=== PATIENT | female | born 1980 | race Caucasian/White ===

== ENCOUNTER → 2016-12-14 | Outpatient (CLI) | payer OTHER, BC ==
[2016-12-14 13:51] LABS: Basophils % (A) 0 %; CH 29.3; CHCM 33.3; Eosinophils # (A) 0.2 k/uL (0-0.7); Eosinophils % (A) 2 %; HCT 33.9 % (34.0-46.0); HDW 2.89; HGB 11.3 gm/dL (11.4-16.0); Luc # (Auto) 0.22; Luc % (Auto) 2; Lymphocytes # (A) 1.7 k/uL (1.0-4.8); Lymphocytes % (A) 14 %; MCH 29.5 pg (25.0-35.0); MCHC 33.3 g/dL (31.0-37.0); MCV 88.5 fL (80.0-100.0); Mean Platelet Volume 8.4; Monocytes # (A) 0.5 k/uL (0-1.0); Monocytes % (A) 4 %; Neutrophils # (A) 9.5 k/uL (1.3-7.7); Neutrophils % (A) 79 %; RBC 3.83 m/uL (3.80-5.40); RDW 14.1 % (11.5-15.5)
[2016-12-15 08:00] LABS: HIV-1/HIV-2 Ab Screen NONREAC (NON REAC)
== END ==
LOC: LABWHC1 12:12
PROVIDERS: ATTEND Midwife
DX: Z36 Encounter for antenatal screening of mother (principal)
CPT/HCPCS: 36415; 82950; 85025; 86780; 87389

== ENCOUNTER → 2017-01-14 | Outpatient (CLI) | payer BC, OTHER ==
[2017-01-14 08:43] LABS: Basophils % (A) 0 %; CH 29.3; CHCM 33.1; Eosinophils # (A) 0.2 k/uL (0-0.7); Eosinophils % (A) 2 %; HCT 36.5 % (34.0-46.0); HDW 2.71; Luc # (Auto) 0.25; Luc % (Auto) 2; Lymphocytes # (A) 1.8 k/uL (1.0-4.8); Lymphocytes % (A) 17 %; MCH 29.2 pg (25.0-35.0); MCHC 32.8 g/dL (31.0-37.0); MCV 88.9 fL (80.0-100.0); Mean Platelet Volume 9.2; Monocytes # (A) 0.5 k/uL (0-1.0); Monocytes % (A) 5 %; Neutrophils # (A) 7.7 k/uL (1.3-7.7); Neutrophils % (A) 74 %; RBC 4.11 m/uL (3.80-5.40); RDW 14.6 % (11.5-15.5); WBC 10.4 k/uL (3.8-10.6)
[2017-01-14 12:18] LABS: Glucose 3 Hour, Gest 77 mg/dL
[2017-01-18 08:00] LABS: HIV-1/HIV-2 Ab Screen NONREAC (NON REAC)
== END | disposition home or self-care (01) ==
LOC: LABWHC1 07:54
PROVIDERS: ATTEND Obstetrics & Gynecology
DX: O24.419 Gestational diabetes mellitus in pregnancy, unspecified control (principal); Z3A.00 Weeks of gestation of pregnancy not specified
CPT/HCPCS: 36415; 82951; 82952; 85025; 86780; 87389

== ENCOUNTER 2018-05-25 06:15 | Inpatient (IN) | payer BC, OTHER ==
[2018-05-25] MEDS ORDERED: TERBUTALINE 1 MG/ML VIAL SQ PRN (06:54)
[2018-05-25] MEDS ORDERED: LIDOCAINE 1% INJ 10MG/ML (20 ML MDV) SQ PRN (06:54)
[2018-05-25] MEDS ORDERED: CARBOPROST TROMETHAMINE 250 MCG/ML 1 ML AMP IM PRN (06:54)
[2018-05-25] MEDS ORDERED: METHYLERGONOVINE 0.2 MG/ML 1 ML AMP IM PRN (06:54)
[2018-05-25] MEDS ORDERED: OXYTOCIN 10 UNIT/ML 1 ML VIAL IM PRN (06:54)
[2018-05-25] MEDS ORDERED: OXYTOCIN 20 UNITS/1000 ML NS 1,000 ML IV SCH (07:00)
[2018-05-25 07:03] LABS: Anisocytosis Slight; Basophils % (A) 0 %; Eosinophils # (A) 0.2 k/uL (0-0.7); Eosinophils % (A) 2 %; HCT 30.1 % (34.0-46.0); HGB 9.5 gm/dL (11.4-16.0); Hypochromasia Moderate; Lymphocytes # (A) 2.1 k/uL (1.0-4.8); Lymphocytes % (A) 21 %; MCH 25.6 pg (25.0-35.0); MCHC 31.7 g/dL (31.0-37.0); MCV 80.9 fL (80.0-100.0); Mean Platelet Volume 11.5; Monocytes # (A) 0.4 k/uL (0-1.0); Monocytes % (A) 4 %; Neutrophils # (A) 6.8 k/uL (1.3-7.7); Neutrophils % (A) 71 %; Platelet Count 164 k/uL (150-450); RBC 3.73 m/uL (3.80-5.40); RDW 17.3 % (11.5-15.5); WBC 9.6 k/uL (3.8-10.6)
[2018-05-25] MEDS: LACTATED RINGERS 1,000 ML IV SCH ×2 (07:18→10:13)
[2018-05-25 07:31] VITALS: BMI 29.0
[2018-05-25] MEDS ORDERED: ROPIVACAINE 100 MG, fentaNYL (PF) 200 MCG in SODIUM CHLORIDE 0.9% 76 ML EPIDURAL ONE (10:55)
[2018-05-25] MEDS ORDERED: diphenhydrAMINE 25 MG CAP PO PRN (19:55)
[2018-05-25] MEDS ORDERED: ACETAMINOPHEN TAB 325 MG TAB PO PRN (19:55)
[2018-05-25] MEDS ORDERED: HYDROCORTISONE 2.5% RECTAL CREAM 30 GM TUBE RECTAL PRN (19:55)
[2018-05-25] MEDS ORDERED: SIMETHICONE 80 MG CHEWABLE PO PRN (19:55)
[2018-05-25] MEDS ORDERED: HYDROcodone/APAP 5-325MG 1 EACH TAB PO PRN (19:55)
[2018-05-25] MEDS ORDERED: WITCH HAZEL 1 EACH MED..PAD TOPICAL PRN (19:55)
[2018-05-25] MEDS ORDERED: BENZOCAINE/MENTHOL SPRAY 1 GM/SPRAY AEROSOL TOPICAL PRN (19:55)
[2018-05-25] MEDS ORDERED: ZOLPIDEM 5 MG TAB PO PRN (19:55)
[2018-05-25] MEDS ORDERED: LANOLIN CREAM 5 GM TUBE TOPICAL PRN (19:55)
[2018-05-25] MEDS ORDERED: diphenhydrAMINE 50 MG CAP PO PRN (19:55)
--- NOTE | 2018-05-25 20:03 | P.HPOB ---
History of Present Illness H&P Date: 05/25/18 Chief Complaint: Intrauterine at term: Induction of labor Patient is a 37-year-old 9 weeks gestation arise for induction of labor. Her Precis course of incompetent by advanced maternal age and late to care. She also has a history of HSV but had no recent outbreaks. She was started on prophylaxis. All questions were answered for her prior to proceeding with the induction and otherwise her Precis course was generally unremarkable. Pertinent labs included a positive blood type Rh antibody was negative, rubella was immune, hepatitis B surface antigen RPR and HIV were all negative. Category 1 tracing is noted this morning she was dilated to 2 cm artificial rupture membranes was performed and clear fluid was noted. GBS was also noted to be negative. Maternal 21 was also normal. Past Medical History Past Medical History: GERD/Reflux Additional Past Medical History / Comment(s): HERNIATED DISC. MILD DISC DISEASE. IBS. History of Any Multi-Drug Resistant Organisms: None Reported Past Surgical History: Section Additional Past Surgical History / Comment(s): PAIN INJECTIONS. COLONSCOPY. D+ C 2003 Past Anesthesia/Blood Transfusion Reactions: No Reported Reaction Past Psychological History: ADD/ADHD, Anxiety Smoking Status: Current every day smoker Past Alcohol Use History: Rare Past Drug Use History: None Reported - Past Family History Father History Unknown: Yes Additional Family Medical History / Comment(s): patient is adopted Medications and Allergies Home Medications Medication Instructions Recorded Confirmed Type Ranitidine HCl [Zantac] 150 mg PO DIRECTED PRN 10/22/15 05/25/18 History Acyclovir 400 mg PO BID 05/25/18 05/25/18 History Allergies Allergy/AdvReac Type Severity Reaction Status Date / Time azithromycin [From Zithromax] AdvReac Severe Unknown Verified 05/25/18 06:47 doxycycline AdvReac Severe Nausea & Verified 05/25/18 06:47 Vomiting sulfamethoxazole AdvReac Severe Nausea & Verified 05/25/18 06:47 [From Bactrim] Vomiting trimethoprim [From Bactrim] AdvReac Severe Nausea & Verified 05/25/18 06:47 Vomiting Exam Osteopathic Statement: *. No significant issues noted on an osteopathic structural exam other than those noted in the History and Physical/Consult. Vital Signs Temp Pulse Resp BP Pulse Ox 05/25/18 19:57 98.5 F 80 16 135/88 05/25/18 16:47 98.2 F 62 17 140/81 05/25/18 16:17 58 L 16 134/83 05/25/18 15:47 57 L 16 131/80 05/25/18 15:32 66 18 133/79 05/25/18 15:17 66 17 137/76 05/25/18 14:56 64 17 132/72 05/25/18 14:45 98.3 F 75 16 130/69 05/25/18 07:19 73 17 138/73 100 Intake and Output 05/25/18 05/25/18 05/25/18 06:59 14:59 22:59 Other: # Voids 1 Weight 81.647 kg 81.647 kg - OBG Physical Exam Breast: both: normal (no masses) Abdomen: bowel sounds normal, no diffuse tenderness, no bruit present, no guarding noted, no hepatomegaly, no splenomegaly, no mass Vulva: both: normal Vagina: normal moisture, no discharge Cervix: no lesion, no discharge Uterus: normal size, normal contour Adnexa: both: normal Anus/Rectum: normal perianal skin, no rectal mass, no hemorrhoids, heme negative Results Result Diagrams: 05/25/18 06:50 Abnormal Lab Results - Last 24 Hours (Table) 05/25/18 Range/Units 06:50 RBC 3.73 L (3.80-5.40) m/uL Hgb 9.5 L (11.4-16.0) gm/dL Hct 30.1 L (34.0-46.0) % RDW 17.3 H (11.5-15.5) %
--- NOTE | 2018-05-25 20:04 | P.PROBDLV ---
Vaginal Delivery Note - . Vaginal Delivery Note: Patient progressed complete and pushed with spontaneous vaginal delivery of a viable female over an intact perineum. Falling deliver the head anterior posterior shoulders were delivered with gentle downward upper traction followed by the remainder the baby. Baby was delivered from left occiput anterior position. Once baby was delivered mouth nares were bulb suctioned and baby was placed on mother's abdomen where the umbilical cord was allowed to pulsate for 30 seconds prior to clamping and cutting. Once this was completed nursery personnel was present to assume care. Placenta was then delivered intact and Pitocin was added to the IV. scores were 9 and 9 at one and 5 minutes respectively weight was 8 lbs. 5 oz. Both mother and baby are stable following delivery.
[2018-05-25] MEDS: IBUPROFEN 600 MG TAB PO PRN (23:07)
[2018-05-25] MEDS: SENNOSIDES-DOCUSATE SODIUM 1 EACH TAB PO SCH (23:07)
[2018-05-26] MEDS: IBUPROFEN 600 MG TAB PO PRN ×2 (06:17→12:49)
[2018-05-26] MEDS: SENNOSIDES-DOCUSATE SODIUM 1 EACH TAB PO SCH (08:00)
--- NOTE | 2018-05-26 08:43 | P.DS ---
Providers Date of admission: 05/25/18 06:39 Expected date of discharge: 05/26/18 Attending physician: Aldo Wagner Primary care physician: Stated None Hospital Course: Patient is doing very well day 1. She is involuting, voiding, and she is tolerating her diet. She voices no complaints. Vital signs are stable and afebrile. Heart regular, lungs clear, extremities without pain. Abdomen soft uterus is firm and lochia is reported be light. Assessment day 1. Plan discharged home follow up with me in 6 weeks. Prescription for Motrin and a breast pump were provided and all of the questions are answered for her at this time. Patient Condition at Discharge: Good Plan - Discharge Summary New Discharge Prescriptions: New Ibuprofen [Motrin] 600 mg PO Q6HR PRN #30 tab PRN Reason: Pain No Action Ranitidine HCl [Zantac] 150 mg PO DIRECTED PRN PRN Reason: STOMACH PAIN Acyclovir 400 mg PO BID Discharge Medication List Ranitidine HCl [Zantac] 150 mg PO DIRECTED PRN 10/22/15 [History] Acyclovir 400 mg PO BID 05/25/18 [History] Ibuprofen [Motrin] 600 mg PO Q6HR PRN #30 tab 05/26/18 [Rx] Follow up Appointment(s)/Referral(s): Aldo Wagner DO [Doctor of Osteopathic Medicine] - 6 Weeks Activity/Diet/Wound Care/Special Instructions: No heavy lifting, limit stairs and driving, and pelvic rest. If any high temperatures, heavy bleeding, or severe pain call my office Discharge Disposition: HOME SELF-CARE
[2018-05-26 09:03] LABS: Anisocytosis Slight; Basophils % (A) 0 %; Eosinophils # (A) 0.2 k/uL (0-0.7); Eosinophils % (A) 2 %; HCT 27.5 % (34.0-46.0); Hypochromasia Slight; Lymphocytes # (A) 1.9 k/uL (1.0-4.8); Lymphocytes % (A) 18 %; MCH 25.9 pg (25.0-35.0); MCHC 32.8 g/dL (31.0-37.0); MCV 79.1 fL (80.0-100.0); Mean Platelet Volume 12.1; Microcytosis Slight; Monocytes # (A) 0.4 k/uL (0-1.0); Monocytes % (A) 4 %; Neutrophils # (A) 8.2 k/uL (1.3-7.7); Neutrophils % (A) 75 %; Platelet Count 148 k/uL (150-450); RBC 3.48 m/uL (3.80-5.40); RDW 17.8 % (11.5-15.5); WBC 10.9 k/uL (3.8-10.6)
[2018-05-26 10:47] LABS: Large Platelets Present; Toxic Granulation Present
[2018-05-26 11:53] VITALS: BP 126/64; PULSE 98; RESP 18; TEMP 98.3
== END 2018-05-26 16:45 | disposition home or self-care (01) | DRG 807 ==
LOC: 4FBP 06:39
PROVIDERS: ADMIT Obstetrics & Gynecology; ATTEND Obstetrics & Gynecology
PROC: 00HU33Z Insertion of Infusion Device into Spinal Canal, Percutaneous Approach (ICD-10-PCS; principal; 2018-05-25)
PROC: 10907ZC Drainage of Amniotic Fluid, Therapeutic from Products of Conception, Via Natural or Artificial Opening (ICD-10-PCS; principal; 2018-05-25)
PROC: 10E0XZZ Delivery of Products of Conception, External Approach (ICD-10-PCS; principal; 2018-05-25)
PROC: 3E033VJ Introduction of Other Hormone into Peripheral Vein, Percutaneous Approach (ICD-10-PCS; principal; 2018-05-25)
PROC: 3E0R3NZ Introduction of Analgesics, Hypnotics, Sedatives into Spinal Canal, Percutaneous Approach (ICD-10-PCS; principal; 2018-05-25)
DX: O98.32 Other infections with a predominantly sexual mode of transmission complicating childbirth (principal); Z37.0 Single live birth; F17.200 Nicotine dependence, unspecified, uncomplicated; O99.334 Smoking (tobacco) complicating childbirth; Z79.899 Other long term (current) drug therapy; K21.9 Gastro-esophageal reflux disease without esophagitis; O99.62 Diseases of the digestive system complicating childbirth; Z88.1 Allergy status to other antibiotic agents; Z88.2 Allergy status to sulfonamides; Z3A.39 39 weeks gestation of pregnancy
CPT/HCPCS: 85025; 86850; 86900; 86901

== ENCOUNTER → 2018-08-30 | Outpatient (CLI) | payer OTHER ==
[2018-08-30 12:44] LABS: Basophils # (A) 0.1 k/uL (0-0.2); Basophils % (A) 1 %; Eosinophils # (A) 0.2 k/uL (0-0.7); Eosinophils % (A) 3 %; HCT 37.2 % (34.0-46.0); HGB 12.1 gm/dL (11.4-16.0); Lymphocytes # (A) 1.9 k/uL (1.0-4.8); Lymphocytes % (A) 28 %; MCH 27.7 pg (25.0-35.0); MCHC 32.4 g/dL (31.0-37.0); MCV 85.5 fL (80.0-100.0); Mean Platelet Volume 7.4; Monocytes # (A) 0.3 k/uL (0-1.0); Monocytes % (A) 5 %; Neutrophils # (A) 4.1 k/uL (1.3-7.7); Neutrophils % (A) 61 %; Platelet Count 311 k/uL (150-450); RBC 4.36 m/uL (3.80-5.40); RDW 14.7 % (11.5-15.5); WBC 6.8 k/uL (3.8-10.6)
== END ==
LOC: LABPAT 11:51
PROVIDERS: ATTEND Obstetrics & Gynecology
DX: Z01.812 Encounter for preprocedural laboratory examination (principal)
CPT/HCPCS: 36415; 85025

== ENCOUNTER → 2018-10-18 | Outpatient (CLI) | payer OTHER ==
--- NOTE | 2018-10-18 13:35 | US ---
EXAMINATION TYPE: US pelvis complete transvag DATE OF EXAM: 10/18/2018 COMPARISON: 03/26/2010 CLINICAL HISTORY: N93.8 Other specified abnormal uterine and vaginal. Irreg menses with cramping TECHNIQUE: Transvaginal (TV) and Transabdominal (TA) . Transabdominal sonographic images of the pel vis were acquired. Transvaginal sonographic images were medically necessary to better assess the fol lowing anatomy: Ovaries Date of LMP: 10/11/2018, EXAM MEASUREMENTS: Uterus: 9.0 x 5.6 x 3.6 cm Endometrial Stripe: 0.6 cm Right Ovary: 2.7 x 1.6 x 1.5 cm Left Ovary: 3.2 x 2.0 x 2.0 cm 1. Uterus: Anteverted heterogenous 2. Endometrium: wnl 3. Right Ovary: follicles seen 4. Left Ovary: dominant follicle or small cyst = 1.7 x 1.6 x 1.2 cm 5. Bilateral Adnexa: wnl 6. Posterior cul-de-sac: no free fluid Cervix- fluid seen in cervical canal IMPRESSION: 1. Uterine myometrium is heterogeneous which is nonspecific finding. Endometrium measures within norm al limits and no discrete fibroids are seen. Small amount of fluid is seen within the cervical canal. 2. Dominant follicle or small 1.7 cm simple appearing left ovarian cyst.
== END ==
LOC: RADUSWWP 12:39
PROVIDERS: ATTEND Obstetrics & Gynecology
DX: N83.202 Unspecified ovarian cyst, left side (principal)
CPT/HCPCS: 76830; 76856

== ENCOUNTER → 2018-10-26 | Outpatient (CLI) | payer OTHER ==
[2018-10-26 11:50] LABS: Basophils # (A) 0.1 k/uL (0-0.2); Basophils % (A) 1 %; Eosinophils # (A) 0.3 k/uL (0-0.7); Eosinophils % (A) 3 %; HCT 39.5 % (34.0-46.0); HGB 12.9 gm/dL (11.4-16.0); Lymphocytes # (A) 2.5 k/uL (1.0-4.8); Lymphocytes % (A) 30 %; MCH 28.6 pg (25.0-35.0); MCHC 32.6 g/dL (31.0-37.0); Mean Platelet Volume 7.6; Monocytes # (A) 0.4 k/uL (0-1.0); Monocytes % (A) 5 %; Neutrophils % (A) 60 %; Platelet Count 250 k/uL (150-450); RBC 4.49 m/uL (3.80-5.40); RDW 14.3 % (11.5-15.5); WBC 8.4 k/uL (3.8-10.6)
== END | disposition home or self-care (01) ==
LOC: LABPAT 11:24
PROVIDERS: ATTEND Obstetrics & Gynecology
DX: Z01.812 Encounter for preprocedural laboratory examination (principal)
CPT/HCPCS: 85025

== ENCOUNTER → 2018-10-26 | Outpatient (CLI) | payer OTHER | END | disposition home or self-care (01) | LOC: LABWHC1 11:21 | PROVIDERS: ATTEND Obstetrics & Gynecology | DX: N93.8 Other specified abnormal uterine and vaginal bleeding (principal) | CPT/HCPCS: 36415; 83001; 83002; 84146; 84439; 84443 ==

== ENCOUNTER 2018-10-27 06:30 | Day surgery (SDC) | payer OTHER ==
--- NOTE | 2018-10-26 12:43 | P.HPOB ---
History of Present Illness H&P Date: 10/26/18 Chief Complaint: Family planning and menorrhagia Patient is a [age] female who desires permanent sterilization and would like a D&C with hysteroscopy and NovaSure to stop her vaginal bleeding. Ultrasound was reviewed and should be fine for a NovaSure procedure. She is been symptomatic for a number of months with bleeding every 2 weeks which has made her tired and weak and unable to function well. She is a current tobacco abuser hormone replacement for control for controlling her bleeding is contraindicated. She is therefore scheduled for it D&C with hysteroscopy and NovaSure with left scopic tubal occlusion with Filshie clips. Risks/benefits/alternatives to this procedure were discussed with the patient in detail and all questions were answered for her prior to proceeding to the operating room. On physical exam this a well-developed well-nourished female whose HEENT is otherwise unremarkable. Heart regular, lungs clear, extremities are without pain. Abdomen soft nontender. Pelvic exam is otherwise unremarkable. Assessment menorrhagia and family planning. Plan D&C with hysteroscopy and NovaSure as well as a laparoscopic tubal occlusion. Past Medical History Past Medical History: GERD/Reflux Additional Past Medical History / Comment(s): HERNIATED DISC. MILD DISC DISEASE. IBS. History of Any Multi-Drug Resistant Organisms: None Reported Past Surgical History: Section Additional Past Surgical History / Comment(s): PAIN INJECTIONS. COLONSCOPY. D+C 2003 Past Anesthesia/Blood Transfusion Reactions: No Reported Reaction Smoking Status: Current every day smoker - Past Family History Father History Unknown: Yes Additional Family Medical History / Comment(s): patient is adopted Medications and Allergies Home Medications Medication Instructions Recorded Confirmed Type Ranitidine HCl [Zantac] 150 mg PO DIRECTED PRN 10/22/15 08/29/18 History Ibuprofen [Motrin] 600 mg PO Q6HR PRN #30 tab 05/26/18 08/29/18 Rx Allergies Allergy/AdvReac Type Severity Reaction Status Date / Time azithromycin [From Zithromax] AdvReac Severe Nausea & Verified 08/29/18 09:53 Vomiting doxycycline AdvReac Severe Nausea & Verified 08/29/18 09:53 Vomiting sulfamethoxazole AdvReac Severe Nausea & Verified 08/29/18 09:53 [From Bactrim] Vomiting trimethoprim [From Bactrim] AdvReac Severe Nausea & Verified 08/29/18 09:53 Vomiting Exam Osteopathic Statement: *. No significant issues noted on an osteopathic structural exam other than those noted in the History and Physical/Consult. Intake and Output 10/25/18 10/26/18 10/26/18 22:59 06:59 14:59 Other: Weight 0 g
[~2018-10-27 06:30] MED LIST: Pre Op ABX Message 1 EACH MISC MISCELLANE ONE
[2018-10-27] MEDS ORDERED: DEXAMETHASONE SOD PHOSPHATE 10 MG/ML 1 ML VIAL IV ONE (06:53)
[2018-10-27] MEDS ORDERED: ONDANSETRON 4 MG/2 ML VIAL IVP ONE (06:53)
[2018-10-27] MEDS ORDERED: SCOPOLAMINE 1.5MG/72HR PATCH TRANSDERM ONE (06:53)
[2018-10-27] MEDS ORDERED: LACTATED RINGERS 1,000 ML IV SCH (06:53)
[2018-10-27] MEDS ORDERED: MIDAZOLAM (PF) 2 MG/2 ML VIAL IV PRN (06:53)
[2018-10-27] MEDS ORDERED: HYDROmorphone 0.5 MG/0.5 ML SYRINGE IVP PRN (06:53)
[2018-10-27 06:59] VITALS: RESP 16
[2018-10-27] MEDS ORDERED: PROPOFOL 10 MG/ML 20 ML VIAL IV ONE (07:37)
[2018-10-27] MEDS ORDERED: ROCURONIUM BROMIDE 10 MG/ML 10 ML VIAL IV ONE (07:37)
[2018-10-27] MEDS ORDERED: NEOSTIGMINE 1 MG/ML 10 ML VIAL ONE (07:37)
[2018-10-27] MEDS ORDERED: KETOROLAC 30 MG/ML 1 ML VIAL ONE (07:37)
[2018-10-27] MEDS ORDERED: GLYCOPYRROLATE 0.2 MG/ML 2 ML VIAL ONE (07:37)
[2018-10-27] MEDS ORDERED: LIDOCAINE 1% INJ 10MG/ML (20 ML MDV) ONE (07:37)
[2018-10-27] MEDS ORDERED: SUCCINYLCHOLINE CHLORIDE 100 MG/5 ML SYR IV ONE (07:37)
[2018-10-27] MEDS ORDERED: MIDAZOLAM 2 MG/2 ML VIAL ONE (07:37)
[2018-10-27] MEDS ORDERED: BUPIVACAINE (PF) 0.25% 30 ML VIAL SQ ONE (08:03)
[2018-10-27] MEDS ORDERED: MEPERIDINE 50 MG/ML SYRINGE IVP ONE (08:40)
--- NOTE | 2018-10-27 08:45 | P.OP ---
Date of Procedure: 10/27/18 Preoperative Diagnosis: Menorrhagia and family planning Postoperative Diagnosis: Same Procedure(s) Performed: D&C with hysteroscopy and NovaSure with left scopic tubal occlusion Anesthesia: DEIRDRE Surgeon: Aldo Wagner Estimated Blood Loss (ml): 5 Pathology: other (Uterine curettings) Condition: stable Disposition: same day Operative Findings: No gross pathology noted. Normal female anatomy. Description of Procedure: Patient was taken to the operating suite where a general anesthetic was found be adequate. She was prepped and draped in the normal sterile fashion and placed in the dorsal lithotomy position. Initially a speculum was inserted into the vagina and the anterior lip of the cervix was identified and grasped with a tenaculum. Cervix was then dilated and sounded to 9 cm. Once this was accomplished uterine manipulator was inserted without difficulty and a red rubber catheter was used to drain the bladder of urine. Catheter was then removed as was speculum and tenaculum. Once this was accomplished gloves were changed and attention was turned to the abdominal portion procedure where 2 mL of quarter percent Marcaine was injected periumbilically. Through this injected anesthetic a 5 mm skin incision was made and through this incision under direct visualization with an optical trocar and sleeve the camera was inserted. Once peritoneal placement was assured gas was allowed to fully insufflate the abdomen and patient was then placed in steep Trendelenburg position. Second 8 mm skin incision was then made 3 cm above the pubic symphysis in the midline and this port and sleeve were inserted again under direct visualization. Once this was accomplished observations pelvis were made with no gross pathology noted. Therefore a Filshie clip Care was used to clip the right and left fallopian tubes 2-3 cm from uterine cornu. With no bleeding noted in the mesosalpinx instruments were removed and gas was allowed to expel from the abdomen. 5 deep breaths were provided during this process. Trochars were then removed and skin was closed subcuticularly with 4-0 Vicryl and another 5 mL was injected around the incisions. Once this was completed attention was again returned to the vagina where the speculum was returned and the uterine manipulator was removed. Single-tooth tenaculum was again used to grasp the cervix and cervix was cannulated with a hysteroscope. With proliferative only noted in the endometrium camera was removed and sharp curettings of the endometrium were obtained and placed on Telfa and sent to pathology for evaluation. Once this was completed NovaSure system was inserted with a length of 5 and a width of 4.2 it was tested once it passes patency test was enabled and burned for 77 seconds. At the conclusion the burn all instruments removed sponge, lap, needle counts were all correct 2. Patient was then taken to the recovery room in stable and satisfactory condition. Plan - Discharge Summary New Discharge Prescriptions: New Ibuprofen [Motrin] 600 mg PO Q6HR PRN #30 tab PRN Reason: Pain HYDROcodone/APAP 5-325MG [Selby 5-325] 2 tab PO Q6HR PRN 3 Days #24 tab PRN Reason: Pain No Action Ranitidine HCl [Zantac] 150 mg PO DIRECTED PRN PRN Reason: STOMACH PAIN Ibuprofen [Motrin] 600 mg PO Q6HR PRN #30 tab PRN Reason: Pain Discharge Medication List Ranitidine HCl [Zantac] 150 mg PO DIRECTED PRN 10/22/15 [History] Ibuprofen [Motrin] 600 mg PO Q6HR PRN #30 tab 05/26/18 [Rx] HYDROcodone/APAP 5-325MG [Selby 5-325] 2 tab PO Q6HR PRN 3 Days #24 tab 10/27/18 [Rx] Ibuprofen [Motrin] 600 mg PO Q6HR PRN #30 tab 10/27/18 [Rx] Follow up Appointment(s)/Referral(s): Aldo Wagner DO [Doctor of Osteopathic Medicine] - 2 Weeks Activity/Diet/Wound Care/Special Instructions: No heavy lifting, limit stairs and driving, and pelvic rest. If any high temperatures, heavy bleeding, or severe pain call my office
[2018-10-27 08:47] VITALS: TEMP 97.1
[2018-10-27] MEDS ORDERED: LACTATED RINGERS 1,000 ML IV ONE (09:19)
[2018-10-27] MEDS ORDERED: HYDROcodone/APAP 5-325MG 1 EACH TAB PO ONE (10:05)
[2018-10-27 10:42] VITALS: BP 140/87; PULSE 54
== END 2018-10-27 11:22 | disposition home or self-care (01) ==
LOC: OR 06:30
PROVIDERS: ATTEND Obstetrics & Gynecology
DX: N92.0 Excessive and frequent menstruation with regular cycle (principal); Z30.2 Encounter for sterilization; K21.9 Gastro-esophageal reflux disease without esophagitis; Z79.1 Long term (current) use of non-steroidal anti-inflammatories (NSAID); Z79.899 Other long term (current) drug therapy; Z88.1 Allergy status to other antibiotic agents; Z88.2 Allergy status to sulfonamides
CPT/HCPCS: 81025; 88305; 58563; 58671; J2250; J1100; J2710; J2175; J2405; J2001; J1885; J0330; J2704

== ENCOUNTER → 2020-09-02 | Outpatient (CLI) | payer OTHER | END | disposition home or self-care (01) | LOC: LABWHC1 13:10 | PROVIDERS: ATTEND Nurse Practitioner Family | DX: Z20.822 Contact with and (suspected) exposure to COVID-19 (principal) | CPT/HCPCS: U0003; C9803; U0005 ==